=== PATIENT | female | born 1960 | race Caucasian/White ===

== ENCOUNTER 2021-10-29 17:30 | Inpatient (IN) | payer BC, OTHER ==
[~2021-10-29] VITALS: Ht 172.7 cm; Wt 85.8 kg
[2021-10-29 17:44] VITALS: BP 167/80
[2021-10-29] MEDS ORDERED: REMEDY ESSENTIAL ZINC PASTE 113 GM TOP PRN (18:00)
[2021-10-29] MEDS ORDERED: APIX5TAB4 PO (18:03)
[2021-10-29] MEDS ORDERED: CARI350T PO (18:03)
[2021-10-29] MEDS ORDERED: CLOT15CR36 TP (18:04)
[2021-10-29] MEDS ORDERED: LORA-259 PO (18:07)
[2021-10-29] MEDS ORDERED: DILT360C28 PO (18:07)
[2021-10-29] MEDS ORDERED: TRAM50TA PO (18:17)
[2021-10-29] MEDS ORDERED: METF-440 PO (18:17)
[2021-10-29] MEDS ORDERED: TRAZ-182 PO (18:17)
[2021-10-29] MEDS ORDERED: MINE1OIL2 MC (18:17)
[2021-10-29] MEDS ORDERED: TRAM50TA2 PO (18:17)
[2021-10-29] MEDS ORDERED: PETR113P TP (18:17)
[2021-10-29] MEDS ORDERED: PRED20TA PO (18:17)
[2021-10-29] MEDS ORDERED: ALBU1.25 NEB (18:19)
[2021-10-29] MEDS ORDERED: ALBU1.257 NEB (18:19)
[2021-10-29] MEDS ORDERED: IPRA0.2S48 NEB (18:21)
--- NOTE | 2021-10-29 19:01 | NUR ---
Admitted the patient from [facility] via ambulance. Dx Afib, CHF, and Gen. weakness. She is ambulatory with the use of FWW. Continent to bowel and bladder. VS taken, photo taken in chart. Noted with redness to the Bilateral breast folds. Multiple skin discoloration to BUE, no open wounds. Noted with minimal edema and redness to BLE. Skin tag noted to the left buttock. No other concern identified during the assessment. made aware, Dr Alcocer and Dr Durbin for med recon. All needs attended. Will endorse to the next shift for continuity of care.
--- NOTE | 2021-10-29 20:00 | NUR ---
RECEIVED PATIENT AWAKE IN BED. A/O X4. DENIES ANY PAIN OR DISCOMFORT. NO C/O SOB OR RESP. DISTRESS. MID-LINE NOTED TO RIGHT UPPER, INTACT AND PATENT. CALL LIGHT IN REACH. ALL NEEDS ATTENDED. WILL CONTINUE TO MONITOR AND ASSESS.
[2021-10-29 20:37] VITALS: BP 154/77
[2021-10-29] MEDS ORDERED: TRAMADOL HCL 50 MG TABLET PO PRN (20:45)
[2021-10-29] MEDS ORDERED: CARISOPRODOL 350 MG TABLET PO PRN (20:45)
[2021-10-29] MEDS ORDERED: APIXABAN 2.5 MG TABLET PO SCH (21:00)
[2021-10-29] MEDS: APIXABAN 5 MG TABLET PO SCH (21:07)
[2021-10-29] MEDS: TRAZODONE 50 MG TABLET PO PRN (22:01)
[2021-10-30] MEDS: ALBUTEROL SULFATE 1.25 MG/3 ML NEBU NEB SCH ×3 (01:30→13:30)
[2021-10-30] MEDS: IPRATROPIUM BROMIDE 0.5 MG/2.5 ML NEBU NEB SCH ×3 (01:30→13:30)
--- NOTE | 2021-10-30 02:46 | NUR ---
Patient refused treatments nurse aware
[2021-10-30 04:15] VITALS: BP 173/86
--- NOTE | 2021-10-30 06:09 | NUR ---
PATIENT AWAKE IN BED. PATIENT STATED SHE WOKE UP FEELING CONFUSED, BUT FEELS BETTER AT THIS TIME. PATIENT A/O X3 AT THIS TIME. DENIES ANY PAIN OR DISCOMFORT. BP ELEVATED 171/92, RECHECKED AND RECEIVED 173/86. ALL OTHER VS WNL. DENIES ANY CHEST PAIN OR DISCOMFORT. NO RESP. DISTRESS NOTED. MID-LINE NOTED TO RIGHT UPPER ARM, INTACT AND PATENT. CALLED OUT TO DR. MORGAN FOR FURTHER ORDERS AND ENDORSE BP READING. ALL NEEDS ATTENDED. WILL CONTINUE TO MONITOR AND ASSESS.
--- NOTE | 2021-10-30 06:52 | NUR ---
PATIENT AWAKE IN BED. FOUND WANDERING OUTSIDE OF HER ROOM AND FORGOT WHERE SHE WAS. APPEARS CONFUSED. NOTIFIED WORK STATION SUPPORT SPECIALIST. CALLED OUT TO DR. MORGAN VIA EXCHANGE TO INFORM HIM OF PATIENTS BP AND CHANGE IN MENTAL STATUS, WILL ENDORSE TO AM SHIFT.
[2021-10-30 06:59] LABS: HEMATOCRIT 43.4 % (31.2-41.9); MEAN CORPUSCULAR HEMOGLOBIN 36.6 uug (24.7-32.8); MEAN CORPUSCULAR VOLUME 110.5 fL (75.5-95.3); PLATELET COUNT (AUTO) 212 K/uL (179-408)
[2021-10-30 07:19] LABS: BILIRUBIN,TOTAL 1.6 mg/dL (0.2-1.0); MAGNESIUM 2.2 mg/dL (1.8-2.4); PHOSPHOROUS 2.7 mg/dL (2.5-4.9)
[2021-10-30 07:41] LABS: THYROID STIMULATING HORMONE 2.602 mIU/mL (0.358-3.740)
--- NOTE | 2021-10-30 08:30 | NUR ---
CALLED [facility] TO REPORT ELEVATED BP, PER RESIDENTIAL MORTGAGE UNDERWRITER MD WILL CALL BACK. DR PATTERSON ON THE FLOOR AND REPORTED THE ELEVATED VS, ORDER IN CHART, CARRIED OUT. WILL GIVE PATIENT MEDICATION ORDERED. WILL CONTINUE TO MONITOR.
[2021-10-30] MEDS ORDERED: ACETAzolamide 250 MG TABLET PO ONE (08:45)
[2021-10-30] MEDS: METFORMIN HCL 500 MG TABLET PO SCH ×2 (09:03→17:53)
[2021-10-30] MEDS: predniSONE 20 MG TABLET PO SCH (09:03)
[2021-10-30] MEDS: CLOTRIMAZOLE/BETAMET DIPROP CREAM 15 GM TUBE TP SCH ×2 (09:03→20:27)
[2021-10-30] MEDS: APIXABAN 5 MG TABLET PO SCH ×2 (09:04→20:25)
[2021-10-30] MEDS: DILTIAZEM HCL CD 180 MG CAP.SR.24H PO SCH (09:04)
[2021-10-30] MEDS: FUROSEMIDE 20 MG TABLET PO SCH (09:06)
[2021-10-30 10:30] VITALS: BP 159/89
--- NOTE | 2021-10-30 10:30 | NUR ---
BP improved, down 159/89mmHg, no distress identified. will continue to monitor.
[2021-10-30] MEDS: LORAZEPAM 1 MG TABLET PO PRN (11:42)
--- NOTE | 2021-10-30 12:00 | NUR ---
Noted with anxiety, patient started crying. PRN Ativan given as ordered. will continue to monitor.
--- NOTE | 2021-10-30 12:23 | NUR ---
SW consult in order due to patient lives alone and fall history. will continue to monitor.
--- NOTE | 2021-10-30 12:54 | NUR ---
WOUND CARE CONSULT: PT DENIES NEED FOR SKIN ASSESSMENT. PT STATES IS USING LOTRISONE FOR BREASTFOLDS. CURRENT RAJAN SCORE IS 18. WILL SEE PRN.
[2021-10-30 14:41] LABS: *BILIRUBIN,URIN NEGATIVE (NEGATIVE); *BLOOD, URINE 1+ (NEGATIVE); *CLARITY,URINE SLIGHTLY CLOUDY (CLEAR); *COLOR,URINE LIGHT YELLOW (YELLOW); *KETONES,URINE NEGATIVE (NEGATIVE); LEUKOCYTE ESTERASE ,URINE 2+ (NEGATIVE); NITRITE, URINE NEGATIVE (NEGATIVE); PH,URINE 8.5 (5.0-8.0); UGLUCOSE NEGATIVE (NEGATIVE)
[2021-10-30] MEDS ORDERED: DEXTROSE 50% 50 ML DISP.SYRIN IV PRN (15:30)
[2021-10-30] MEDS ORDERED: INSULIN REGULAR, HUMAN 300 UNIT/3 ML VIAL SQ PRN (15:30)
[2021-10-30 16:00] VITALS: BP 160/77
[2021-10-30] MEDS ORDERED: BLOOD SUGAR DIAGNOSTIC 1 EACH STRIP VI SCH (16:30)
[2021-10-30] MEDS: METOPROLOL TARTRATE 25 MG TABLET PO SCH ×2 (16:30→20:25)
[2021-10-30 18:16] VITALS: BP 156/81
--- NOTE | 2021-10-30 18:37 | NUR ---
No other concerns identified during the shift. remained stable. BP still elevated but improved, PRN was not given yet due to parameter should be above SBP 160. noted with increased confusion, MD made aware per charge nurse and ordered UA, awaiting result. PICC line single lumem, intact and patent, dressing changed. safety measures maintained. kept call light within reach. all due meds given. all needs attended. will endorse to the next shift for continuity of care.
[2021-10-30] MEDS ORDERED: ALBUTEROL SULFATE 2.5 MG/3 ML NEBU NEB PRN (19:15)
[2021-10-30] MEDS ORDERED: IPRATROPIUM BROMIDE 0.5 MG/2.5 ML NEBU NEB PRN (19:15)
--- NOTE | 2021-10-30 19:30 | NUR ---
Received patient lying in bed. AAOx4 with periods of confusion. Able to make needs known. Stated pain is tolerable and decreasing at this time. Denies any SOB. On O2 at 2LPm via NC in place. HIRA PICC line intact and patent. Needs assessed and attended to. Safety measure initiated and call light within reached.
[2021-10-30] MEDS: BUDESONIDE 0.5 MG/2 ML NEBU NEB SCH (19:31)
[2021-10-30 20:00] VITALS: BP 148/93
[2021-10-30 20:03] LABS: BACTERIA,URINE MANY /HPF (NONE SEEN); CALCIUM CARBONATE CRYSTALS,UR NONE SEEN /HPF (NONE SEEN); CALCIUM OXALATE CRYSTALS,UR NONE SEEN /HPF (NONE SEEN); CALCIUM PHOSPHATE CRYSTALS,UR NONE SEEN /HPF (NONE SEEN); COARSE GRANULAR CASTS,URINE NONE SEEN /LPF; CYSTINE CRYSTALS,URINE NONE SEEN /HPF (NONE SEEN); FATTY CASTS,URINE NONE SEEN /LPF (NONE SEEN); MUCUS,URINE NONE SEEN /LPF (0-FEW); RED BLOOD CELL CASTS,URINE NONE SEEN /LPF (NONE SEEN); SPERM,URINE NONE SEEN /HPF (NONE SEEN); SQUAMOUS EPITHELIAL CELL,UR MODERATE /HPF (NONE SEEN); TRICHOMONAS,URINE NONE SEEN /HPF (NONE SEEN); TRIPLE PHOSPHATE CRYSTAL,UR NONE SEEN /HPF (NONE SEEN); TYROSINE CRYSTAL,URINE NONE SEEN /HPF (NONE SEEN); URIC ACID CRYSTALS,URINE NONE SEEN /HPF (NONE SEEN); URINE AMORPHOUS PHOSPHATES NONE SEEN /HPF; URINE AMORPHOUS URATE NONE SEEN /HPF; WAXY CASTS,URINE NONE SEEN /LPF (NONE SEEN); YEAST,URINE NONE SEEN /HPF (NONE SEEN)
[2021-10-30] MEDS: NITROFURANTOIN/NITROFURAN MAC 100 MG CAPSULE PO SCH (20:23)
[2021-10-31 04:00] VITALS: BP 148/85
--- NOTE | 2021-10-31 05:29 | NUR ---
Patient remains AAOx3-4 with periods of confusion.No complain of pain or SOB on RA. Right UA PICC line remains intact and patent. Needs assessed and attended to. Frequently sitting at the edge of bed. Safety measure maintained and call light within reached.
[2021-10-31] MEDS: BUDESONIDE 0.5 MG/2 ML NEBU NEB SCH ×2 (07:24→19:30)
[2021-10-31 08:00] VITALS: BP 164/96
[2021-10-31 08:03] LABS: ABG BASE EXCESS 6.1 mmol/L; ABG HCO3 30.8 mmol/L; ABG PH 7.463 (7.350-7.450); ABG PO2 58.1 mmHg (75.0-100.0); ABG SITE RIGHT RADIAL; ABG TOTAL HEMOGLOBIN 16.6 G/dL (12.0-16.0); COHb 1.3 % (0.5-1.5); MetHb 0.3 % (0.0-1.5); O2Hb 88.9 % (94.0-97.0); VENT MODE room air
[2021-10-31] MEDS: METFORMIN HCL 500 MG TABLET PO SCH ×2 (09:00→17:35)
[2021-10-31] MEDS: DILTIAZEM HCL CD 180 MG CAP.SR.24H PO SCH (09:00)
[2021-10-31] MEDS: predniSONE 20 MG TABLET PO SCH (09:00)
[2021-10-31] MEDS: FUROSEMIDE 20 MG TABLET PO SCH (09:00)
[2021-10-31] MEDS: NITROFURANTOIN/NITROFURAN MAC 100 MG CAPSULE PO SCH ×2 (09:00→20:01)
[2021-10-31] MEDS ORDERED: LOSARTAN POTASSIUM 50 MG TABLET PO SCH (09:00)
[2021-10-31] MEDS: APIXABAN 5 MG TABLET PO SCH ×2 (09:01→20:02)
[2021-10-31] MEDS: CLOTRIMAZOLE/BETAMET DIPROP CREAM 15 GM TUBE TP SCH ×2 (09:01→20:03)
--- NOTE | 2021-10-31 10:57 | NUR ---
INTERDISCIPLINARY TEAM CONFERENCE
--- NOTE | 2021-10-31 13:07 | NUR ---
Pt is awake, alert and oriented x 3, able to communicate needs. Pt is able to transfer from bed to chair and vise versa with two person assist. Speech is clear however it was reported by physical therapy and wound care nurse that it is different than her baseline. MD was notified and CT of head without contrast ordered and taken pending results. Comfort measures provided, call light within reach. Will continue to monitor.
[2021-10-31 16:23] VITALS: BP 145/95
[2021-10-31 20:00] VITALS: BP 159/87
--- NOTE | 2021-10-31 20:40 | NUR ---
Received patient sitting at the edge of bed. AAOx4 at this time. Denies any pain or SOB. Right UA PICC line intact and patent. Assisted to BSC and patient had 1 BM small amount then assisted back to bed. Other needs assessed and attended to. Safety measure initiated and call light within reached.
[2021-11-01 04:04] VITALS: BP 159/99
[2021-11-01] MEDS: TRAMADOL HCL 50 MG TABLET PO PRN ×2 (04:08→13:34)
--- NOTE | 2021-11-01 05:39 | NUR ---
Patient remains AAOx3-4 with periods of confusion. No complain of SOB. Ultram given for complain of back pain. Right UA PICC line remains intact and patent. Needs attended to and met. Safety measure maintained and call light within reached.
[2021-11-01 06:24] LABS: HEMATOCRIT 47.1 % (31.2-41.9); MEAN CORPUSCULAR HEMOGLOBIN 36.5 uug (24.7-32.8); MEAN CORPUSCULAR VOLUME 109.6 fL (75.5-95.3); PLATELET COUNT (AUTO) 201 K/uL (179-408)
[2021-11-01 06:45] LABS: BILIRUBIN,TOTAL 2.3 mg/dL (0.2-1.0); CREATININE 0.8 mg/dL (0.6-1.3); MAGNESIUM 1.7 mg/dL (1.8-2.4); PHOSPHOROUS 3.5 mg/dL (2.5-4.9); TOTAL PROTEIN, SERUM 6.3 g/dL (6.4-8.2)
[2021-11-01 06:47] LABS: POTASSIUM 2.8 mmol/L (3.5-5.1)
--- NOTE | 2021-11-01 06:48 | NUR ---
Obtain lab result for K level 2.8 from [facility] Informed Dr. Akers and awaiting for any new order. Will inform day shift nurse who will assume care.
[2021-11-01] MEDS: BUDESONIDE 0.5 MG/2 ML NEBU NEB SCH ×2 (07:26→19:30)
[2021-11-01 07:55] VITALS: BP 154/84
[2021-11-01] MEDS: METFORMIN HCL 500 MG TABLET PO SCH ×2 (07:57→17:05)
[2021-11-01] MEDS: IBUPROFEN 400 MG TABLET PO PRN (07:57)
[2021-11-01] MEDS: DILTIAZEM HCL CD 180 MG CAP.SR.24H PO SCH (08:01)
[2021-11-01] MEDS: LORAZEPAM 1 MG TABLET PO PRN (08:01)
[2021-11-01] MEDS: hydrALAZINE HCL 50 MG TABLET PO PRN ×2 (08:02→11:27)
[2021-11-01] MEDS: FUROSEMIDE 20 MG TABLET PO SCH (08:02)
[2021-11-01] MEDS: NITROFURANTOIN/NITROFURAN MAC 100 MG CAPSULE PO SCH ×2 (08:02→22:05)
[2021-11-01] MEDS: APIXABAN 5 MG TABLET PO SCH ×2 (08:08→22:07)
[2021-11-01] MEDS ORDERED: POTASSIUM CHLORIDE 20 MEQ POWDER PACKET PO ONE (08:16)
--- NOTE | 2021-11-01 09:12 | NUR ---
INDIVIDUALIZED PLAN OF CARE
[2021-11-01] MEDS: MAGNESIUM SULFATE/D5W 100 ML IV SCH ×2 (09:27→10:31)
[2021-11-01] MEDS: POTASSIUM CHLORIDE 50 ML IV SCH ×4 (09:28→16:16)
[2021-11-01] MEDS: predniSONE 10 MG TABLET PO SCH (09:28)
[2021-11-01] MEDS: LOSARTAN POTASSIUM 50 MG TABLET PO SCH ×2 (09:28→16:17)
[2021-11-01] MEDS: CLOTRIMAZOLE/BETAMET DIPROP CREAM 15 GM TUBE TP SCH ×2 (09:29→22:13)
[2021-11-01] MEDS: POTASSIUM CHLORIDE 20 MEQ POWDER PACKET PO SCH (11:20)
[2021-11-01 15:25] VITALS: BP 135/72
[2021-11-01] MEDS: GLUCERNA SHAKE VANILLA 237 ML CAN PO SCH (16:18)
--- NOTE | 2021-11-01 18:39 | NUR ---
no events noted during shift, MRI done today
--- NOTE | 2021-11-01 19:00 | NUR ---
Received patient on bed, watching TV, alert, oriented x4, no shortness of breath noted, no complain of pain.
[2021-11-01 20:00] VITALS: BP 117/75
[2021-11-02 04:00] VITALS: BP 110/71
--- NOTE | 2021-11-02 05:53 | NUR ---
Patient slept well, no complaint of pain. Able to get out of bed with minimal assist going to the bathroom. No shortness sof breath, No episode of confusion and no change in behavior within the shift. Patient in fair condition.
[2021-11-02 06:25] LABS: HEMATOCRIT 45.7 % (31.2-41.9); MEAN CORPUSCULAR HEMOGLOBIN 36.2 uug (24.7-32.8); PLATELET COUNT (AUTO) 178 K/uL (179-408)
[2021-11-02 07:07] LABS: BILIRUBIN,TOTAL 2.4 mg/dL (0.2-1.0); CREATININE 0.7 mg/dL (0.6-1.3); PHOSPHOROUS 3.1 mg/dL (2.5-4.9)
[2021-11-02] MEDS: BUDESONIDE 0.5 MG/2 ML NEBU NEB SCH ×2 (07:30→23:11)
[2021-11-02] MEDS: METFORMIN HCL 500 MG TABLET PO SCH ×2 (08:03→17:04)
[2021-11-02 08:10] VITALS: BP 152/73
[2021-11-02] MEDS: DILTIAZEM HCL CD 180 MG CAP.SR.24H PO SCH (08:19)
[2021-11-02] MEDS: FUROSEMIDE 20 MG TABLET PO SCH (08:19)
[2021-11-02] MEDS: NITROFURANTOIN/NITROFURAN MAC 100 MG CAPSULE PO SCH ×2 (08:19→20:14)
[2021-11-02] MEDS: predniSONE 10 MG TABLET PO SCH (08:19)
[2021-11-02] MEDS: LOSARTAN POTASSIUM 50 MG TABLET PO SCH ×2 (08:19→16:53)
[2021-11-02] MEDS: GLUCERNA SHAKE VANILLA 237 ML CAN PO SCH ×2 (08:20→16:53)
[2021-11-02] MEDS: POTASSIUM CHLORIDE 20 MEQ POWDER PACKET PO SCH (08:20)
[2021-11-02] MEDS: CLOTRIMAZOLE/BETAMET DIPROP CREAM 15 GM TUBE TP SCH ×2 (08:21→20:13)
[2021-11-02] MEDS: TRAMADOL HCL 50 MG TABLET PO PRN ×2 (08:25→20:25)
[2021-11-02] MEDS: APIXABAN 5 MG TABLET PO SCH ×2 (08:27→20:24)
[2021-11-02 16:11] VITALS: BP 142/69
[2021-11-02] MEDS: LORAZEPAM 1 MG TABLET PO PRN (17:57)
--- NOTE | 2021-11-02 19:00 | NUR ---
Received patient on bed, alert, no complaint of pain, reported to have poor intake at day time. Encourage patient to eat well for nourishment and regain her strength.
--- NOTE | 2021-11-02 19:22 | NUR ---
PATIENT NOTED WITH POOR APPETITE, OFFERED DIFFERENT KIND OF FOODS, PATIENT STATED SHE IS NOT HUNGRY, NO ACUTE DISTRESS NOTED AT THIS TIME, CONTINUE TO MONITOR
[2021-11-02 20:00] VITALS: BP 153/82
--- NOTE | 2021-11-03 00:25 | NUR ---
Encouraged patient to drink water, able to drink about 200cc
[2021-11-03 04:00] VITALS: BP 130/74
--- NOTE | 2021-11-03 06:03 | NUR ---
Patient slept well, no compliant of pain. Assisted to bedside commode, needs minimal assist. Back to bed in stable condition. Patient in fair condition.
[2021-11-03] MEDS: BUDESONIDE 0.5 MG/2 ML NEBU NEB SCH (07:23)
[2021-11-03 07:39] VITALS: BP 156/73
[2021-11-03] MEDS: METFORMIN HCL 500 MG TABLET PO SCH ×2 (08:53→17:19)
[2021-11-03] MEDS: NITROFURANTOIN/NITROFURAN MAC 100 MG CAPSULE PO SCH ×2 (08:53→20:50)
[2021-11-03] MEDS: DILTIAZEM HCL CD 180 MG CAP.SR.24H PO SCH (08:54)
[2021-11-03] MEDS: APIXABAN 5 MG TABLET PO SCH ×2 (08:55→20:52)
[2021-11-03] MEDS: CLOTRIMAZOLE/BETAMET DIPROP CREAM 15 GM TUBE TP SCH ×2 (08:56→20:53)
[2021-11-03] MEDS: predniSONE 10 MG TABLET PO SCH (08:56)
[2021-11-03] MEDS: GLUCERNA SHAKE VANILLA 237 ML CAN PO SCH ×2 (08:59→17:24)
[2021-11-03] MEDS: TRAMADOL HCL 50 MG TABLET PO PRN (10:09)
[2021-11-03] MEDS: LOSARTAN POTASSIUM 50 MG TABLET PO SCH ×2 (10:30→17:19)
--- NOTE | 2021-11-03 11:50 | NUR ---
Received patient resting on bed, AAOx4, medicated with Tramadol for C/O of back pain ,respiration even and unlabored at room air continent of B&B used bed side commode.Up with PT/OT for therapeutic exercises tolerated well
[2021-11-03] MEDS: LORAZEPAM 1 MG TABLET PO PRN (14:52)
[2021-11-03 15:13] VITALS: BP 124/62
[2021-11-03 20:49] VITALS: BP 156/76
[2021-11-03] MEDS: TRAZODONE 50 MG TABLET PO PRN (21:45)
[2021-11-04] MEDS: BUDESONIDE 0.5 MG/2 ML NEBU NEB SCH ×3 (00:35→22:24)
[2021-11-04 04:13] VITALS: BP 149/79
--- NOTE | 2021-11-04 04:24 | NUR ---
Watching TV @ beginning of shift. AAOx4 OOB to bedside commode with assist. Voiding freely. All needs attended and met. BM noted this shift. Stool for C diff sent to lab. All po meds given without difficulty. No complaints presented during shift. VSS. Will monitor patient.
[2021-11-04 08:00] VITALS: BP 155/84
[2021-11-04] MEDS: NITROFURANTOIN/NITROFURAN MAC 100 MG CAPSULE PO SCH (08:14)
[2021-11-04] MEDS: DILTIAZEM HCL CD 180 MG CAP.SR.24H PO SCH (08:14)
[2021-11-04] MEDS: METFORMIN HCL 500 MG TABLET PO SCH ×2 (08:14→17:54)
[2021-11-04] MEDS: LORAZEPAM 1 MG TABLET PO PRN ×2 (08:15→17:54)
[2021-11-04] MEDS: LOSARTAN POTASSIUM 50 MG TABLET PO SCH ×2 (08:16→17:54)
[2021-11-04] MEDS: APIXABAN 5 MG TABLET PO SCH ×2 (08:16→20:55)
[2021-11-04] MEDS: GLUCERNA SHAKE VANILLA 237 ML CAN PO SCH ×2 (08:17→17:55)
[2021-11-04] MEDS: predniSONE 10 MG TABLET PO SCH (08:24)
[2021-11-04] MEDS: CLOTRIMAZOLE/BETAMET DIPROP CREAM 15 GM TUBE TP SCH ×2 (08:24→20:44)
[2021-11-04] MEDS: TRAMADOL HCL 50 MG TABLET PO PRN (14:53)
[2021-11-04 16:34] VITALS: BP 164/63
--- NOTE | 2021-11-04 19:15 | NUR ---
Received patient on bed, alert and oriented x4, no complaint of pain at this time, no shortness of breath. SAfety precautions provided, call harrell placed within reach.
[2021-11-04 20:08] VITALS: BP 173/80
[2021-11-04] MEDS: TRAZODONE 50 MG TABLET PO PRN (20:45)
--- NOTE | 2021-11-04 20:45 | NUR ---
Requested for sleeping pill (Trazodone 50mg PO) given, able to slept after 1 hour.
[2021-11-04 21:07] VITALS: BP 159/78
[2021-11-05 04:00] VITALS: BP 130/73
--- NOTE | 2021-11-05 05:19 | NUR ---
patient had bowel movement, perineal care done, zguard applied on both buttocks, skin intact. No [id number] of pain. Still with redness at breast skin folds on medication. Patient in fair condition.
[2021-11-05 07:02] LABS: BILIRUBIN,DIRECT 0.5 mg/dL (0.0-0.2); BILIRUBIN,TOTAL 1.5 mg/dL (0.2-1.0); TOTAL PROTEIN, SERUM 5.9 g/dL (6.4-8.2)
[2021-11-05 07:30] VITALS: BP 129/81
[2021-11-05] MEDS: GLUCERNA SHAKE VANILLA 237 ML CAN PO SCH ×2 (08:00→16:47)
[2021-11-05] MEDS: BUDESONIDE 0.5 MG/2 ML NEBU NEB SCH ×2 (08:05→19:45)
[2021-11-05] MEDS: DILTIAZEM HCL CD 180 MG CAP.SR.24H PO SCH (08:25)
[2021-11-05] MEDS: LOSARTAN POTASSIUM 50 MG TABLET PO SCH ×2 (08:26→16:46)
[2021-11-05] MEDS: predniSONE 5 MG TABLET PO SCH (08:26)
[2021-11-05] MEDS: APIXABAN 5 MG TABLET PO SCH ×2 (08:27→20:55)
[2021-11-05] MEDS: METFORMIN HCL 500 MG TABLET PO SCH ×2 (08:42→18:04)
[2021-11-05] MEDS: CLOTRIMAZOLE/BETAMET DIPROP CREAM 15 GM TUBE TP SCH ×2 (08:43→20:56)
[2021-11-05] MEDS ORDERED: predniSONE 10 MG TABLET PO SCH (09:00)
--- NOTE | 2021-11-05 10:00 | NUR ---
NSG: Received patient resting on bed, AAOx4, AMBULATE WITH pT, respiration even and unlabored at room air continent of B&B used bed side commode.Up with PT/OT for therapeutic exercises tolerated well. continue plan of care.
[2021-11-05] MEDS: hydrALAZINE HCL 50 MG TABLET PO PRN (10:52)
--- NOTE | 2021-11-05 11:15 | NUR ---
blood pressure 168/78 hr 90. hydralazine 50 mg po prn given.
[2021-11-05] MEDS: TRAMADOL HCL 50 MG TABLET PO PRN ×2 (11:22→20:10)
[2021-11-05 16:00] VITALS: BP 121/70
[2021-11-05] MEDS ORDERED: ONDANSETRON HCL 4 MG TABLET PO PRN (16:30)
--- NOTE | 2021-11-05 16:51 | NUR ---
patient c/o nausea. zofran 4 mg po given for nausea.
--- NOTE | 2021-11-05 19:15 | NUR ---
Received patient on bed, awake, no complaint of pain, no shortness of breath, alert and oriented x4. Requested to take sleeping pill at bedtime.
[2021-11-05 20:00] VITALS: BP 123/72
[2021-11-05] MEDS: TRAZODONE 50 MG TABLET PO PRN (20:10)
--- NOTE | 2021-11-06 | NUR ---
Patient sleeping when checked, no signs of pain or shortness of breath noted.
[2021-11-06] MEDS: TRAMADOL HCL 50 MG TABLET PO PRN ×2 (03:41→13:58)
[2021-11-06 04:00] VITALS: BP 125/70
--- NOTE | 2021-11-06 04:00 | NUR ---
Complaint of pain around 0340, Tramadol PO given PRN, able to slept well after an hour. Patient in fair condition.
[2021-11-06] MEDS: BUDESONIDE 0.5 MG/2 ML NEBU NEB SCH ×3 (07:44→19:40)
[2021-11-06 08:00] VITALS: BP 145/65
[2021-11-06] MEDS: GLUCERNA SHAKE VANILLA 237 ML CAN PO SCH ×2 (08:10→17:17)
[2021-11-06] MEDS: predniSONE 5 MG TABLET PO SCH (08:57)
[2021-11-06] MEDS: DILTIAZEM HCL CD 180 MG CAP.SR.24H PO SCH (08:57)
[2021-11-06] MEDS: METFORMIN HCL 500 MG TABLET PO SCH ×2 (08:57→17:18)
[2021-11-06] MEDS: LOSARTAN POTASSIUM 50 MG TABLET PO SCH ×2 (08:57→17:18)
[2021-11-06] MEDS: CLOTRIMAZOLE/BETAMET DIPROP CREAM 15 GM TUBE TP SCH ×2 (08:58→20:45)
[2021-11-06] MEDS: APIXABAN 5 MG TABLET PO SCH ×2 (08:58→20:44)
[2021-11-06] MEDS: IBUPROFEN 400 MG TABLET PO PRN (10:03)
--- NOTE | 2021-11-06 11:46 | NUR ---
Pt is a/o x 4, complained of pain in lower back, ibuprofen administered. Pt is active and independent in personal hygiene. She is more active and mobile, with 1 persona assist. She is able to communicate needs and pain if needed. Comfort measures provided, call light within reach. Pt currently intermittently sleeping. Will continue to monitor.
[2021-11-06 16:00] VITALS: BP 134/64
[2021-11-06 20:00] VITALS: BP 150/73
[2021-11-06] MEDS: TRAZODONE 50 MG TABLET PO PRN (21:49)
[2021-11-07 04:00] VITALS: BP 163/66
[2021-11-07] MEDS: hydrALAZINE HCL 50 MG TABLET PO PRN (06:22)
--- NOTE | 2021-11-07 06:24 | NUR ---
BP 162/66, Apresoline 50 mg given as ordered and needed. Will endorse to oncoming nurse accordingly.
[2021-11-07] MEDS: BUDESONIDE 0.5 MG/2 ML NEBU NEB SCH ×2 (07:33→21:21)
[2021-11-07 07:44] VITALS: BP 150/76
[2021-11-07] MEDS: GLUCERNA SHAKE VANILLA 237 ML CAN PO SCH ×2 (08:00→16:30)
[2021-11-07] MEDS: APIXABAN 5 MG TABLET PO SCH ×2 (08:36→20:42)
[2021-11-07] MEDS: DILTIAZEM HCL CD 180 MG CAP.SR.24H PO SCH (08:37)
[2021-11-07] MEDS: METFORMIN HCL 500 MG TABLET PO SCH ×2 (08:37→18:23)
[2021-11-07] MEDS: LOSARTAN POTASSIUM 50 MG TABLET PO SCH ×2 (08:38→16:30)
[2021-11-07] MEDS: predniSONE 5 MG TABLET PO SCH (08:38)
[2021-11-07] MEDS: CLOTRIMAZOLE/BETAMET DIPROP CREAM 15 GM TUBE TP SCH ×2 (08:39→20:43)
[2021-11-07] MEDS ORDERED: AMLODIPINE 5 MG TABLET PO SCH (09:00)
[2021-11-07] MEDS: AMLODIPINE 2.5 MG TABLET PO SCH ×2 (09:35→20:43)
--- NOTE | 2021-11-07 10:04 | NUR ---
INTERDISCIPLINARY TEAM CONFERENCE
[2021-11-07] MEDS: TRAMADOL HCL 50 MG TABLET PO PRN (13:42)
--- NOTE | 2021-11-07 14:00 | NUR ---
patient is alert, oriented x4, no sob, resp even nonlabored, skin warm and dry to touch, transfers herself from wheelchair to bedside commode with supervision only, still on steroids, no adverse reactions noted, education provided on use of steroids, patient verbalized understanding of it, patient stated her appetite is better than before, drinking enough water, no nausea, no vomiting, no no diarrhea noted.
[2021-11-07 15:24] VITALS: BP 136/63
--- NOTE | 2021-11-07 18:49 | NUR ---
PATIENT COMPLAINED BURNING SENSATIONS UPON URINATION, AND MALODOROUS WILL COLLECT URINE ORDERED
[2021-11-07 20:00] VITALS: BP 143/83
[2021-11-07] MEDS: TRAZODONE 50 MG TABLET PO PRN (22:13)
[2021-11-08] MEDS: BUDESONIDE 0.5 MG/2 ML NEBU NEB SCH ×2 (07:30→20:45)
[2021-11-08 08:23] VITALS: BP 112/55
[2021-11-08] MEDS: METFORMIN HCL 500 MG TABLET PO SCH ×2 (08:52→17:33)
[2021-11-08] MEDS: GLUCERNA SHAKE VANILLA 237 ML CAN PO SCH ×2 (08:53→17:36)
[2021-11-08 09:18] LABS: HEMATOCRIT 40.6 % (31.2-41.9); MEAN CORPUSCULAR HEMOGLOBIN 35.6 uug (24.7-32.8); MEAN CORPUSCULAR VOLUME 111.2 fL (75.5-95.3); PLATELET COUNT (AUTO) 237 K/uL (179-408)
[2021-11-08] MEDS: DILTIAZEM HCL CD 180 MG CAP.SR.24H PO SCH (09:18)
[2021-11-08] MEDS: LOSARTAN POTASSIUM 50 MG TABLET PO SCH ×2 (09:19→17:33)
[2021-11-08] MEDS: APIXABAN 5 MG TABLET PO SCH ×2 (09:20→20:17)
[2021-11-08] MEDS: CLOTRIMAZOLE/BETAMET DIPROP CREAM 15 GM TUBE TP SCH ×2 (09:21→20:22)
[2021-11-08 09:28] LABS: CREATININE 1.1 mg/dL (0.6-1.3); POTASSIUM 4.4 mmol/L (3.5-5.1)
--- NOTE | 2021-11-08 09:45 | NUR ---
Received patient awake, alert, oriented x4, no sob, resp even nonlabored, skin warm and dry to touch, transfers herself from wheelchair to bedside commode with supervision only, C/O of feeling slightly dizzy , patient seen by DR Turner orthostatic BP was taken Lying 112/55, sitting 114/63 and standing 108/72 DR was notified . Received a called from the lab with a critical lab result of WBC of 38.[address] White with order to get a repeat of the CBC, and Blood cultures,CXR ,UA, Phos, mag CMP .patient stated her appetite is better today , encourage to drink enough water, no nausea, no vomiting, no no diarrhea noted. will continue to monitor closely
[2021-11-08] MEDS ORDERED: PIPERACILLIN SODIUM/TAZOBACTAM 4.5 G in IV DEXTROSE 5% 50 ML IV SCH (10:00)
[2021-11-08 10:38] LABS: *BILIRUBIN,URIN 2+ (NEGATIVE); *BLOOD, URINE 3+ (NEGATIVE); *COLOR,URINE YELLOW (YELLOW); *KETONES,URINE TRACE (NEGATIVE); LEUKOCYTE ESTERASE ,URINE 3+ (NEGATIVE); NITRITE, URINE NEGATIVE (NEGATIVE); UGLUCOSE NEGATIVE (NEGATIVE)
[2021-11-08 10:41] LABS: *CLARITY,URINE CLOUDY (CLEAR)
[2021-11-08 11:18] LABS: HEMATOCRIT 41.5 % (31.2-41.9); MEAN CORPUSCULAR VOLUME 111.1 fL (75.5-95.3); PLATELET COUNT (AUTO) 210 K/uL (179-408)
--- NOTE | 2021-11-08 11:30 | NUR ---
Receive a called from the lab with results of the CBC repeat with critical value of 38.9 Dr White was notified with new order for ATB therapy IV Cefepime and vanco order for calcitonin, and Lactic acid level and to notified DR Siddiqui send a massage to DR Siddiqui he will visit the patient this afternoon
[2021-11-08] MEDS: TRAMADOL HCL 50 MG TABLET PO PRN ×2 (11:38→20:18)
[2021-11-08] MEDS ORDERED: DOSING BY PHARMACY-MD TO SPECIFY MED/ROUTE XX PRN (12:00)
[2021-11-08 12:12] LABS: BACTERIA,URINE MANY /HPF (NONE SEEN); RBC,URINE 20-50 /HPF (0-3); WBC,URINE 80-100 /HPF (0-3)
[2021-11-08 12:13] LABS: SQUAMOUS EPITHELIAL CELL,UR MODERATE /HPF (NONE SEEN)
[2021-11-08 12:22] LABS: BAND % (MANUAL) 3 % (0-10); LYMPHOCYTES % (MANUAL) 1 % (20-40); MONOCYTES % (MANUAL) 2 % (2-10); NEUTROPHILS % (MANUAL) 94 % (42-75)
[2021-11-08] MEDS: CEFEPIME HCL 2 G in IV DEXTROSE 5% 100 ML IV SCH (12:26)
[2021-11-08 12:29] LABS: BAND % (MANUAL) 4 % (0-10); LYMPHOCYTES % (MANUAL) 2 % (20-40); MONOCYTES % (MANUAL) 4 % (2-10); NEUTROPHILS % (MANUAL) 90 % (42-75)
[2021-11-08] MEDS ORDERED: DOSING BY PHARMACY-MD TO SPECIFY MED/ROUTE IV SCH (12:30)
--- NOTE | 2021-11-08 13:15 | NUR ---
Received a called from the lab with Lactic acid results of 2.1 DR Allen notified with new order for IV hydration with NS at 70 ml an hour. ATB IV still ruining at this time
[2021-11-08] MEDS: VANCOMYCIN IV 1,000 MG in IV DEXTROSE 5% 250 ML IV SCH (14:10)
--- NOTE | 2021-11-08 14:12 | NUR ---
Pt C/O of feeling cold Temp check is 99.2 at this time MD made aware with new order for Tylenol 650 Q6 PRN Order noted and carried out.
[2021-11-08] MEDS: ACETAMINOPHEN 325 MG TABLET PO PRN ×2 (14:22→20:20)
--- NOTE | 2021-11-08 15:20 | NUR ---
Received a called from lab with Lactic acid Reflux result of 2.4 MD made aware with new order for NS 1L bolus and continue with IV Hydration NS at 70 ml/hr repeat Lactic acid level at 9 PM order noted and carried out
[2021-11-08 15:21] LABS: BILIRUBIN,DIRECT 0.9 mg/dL (0.0-0.2); BILIRUBIN,TOTAL 1.6 mg/dL (0.2-1.0)
[2021-11-08 16:00] VITALS: BP 118/44
[2021-11-08] MEDS ORDERED: IV NS 1000 ML 1,000 ML IV ONE (16:00)
[2021-11-08] MEDS: IV NS 1000 ML 1,000 ML IV PRN (16:06)
[2021-11-08 16:13] LABS: IRON, SERUM 12 ug/dL (50-175)
[2021-11-08 16:39] LABS: FERRITIN 405 ng/mL (8-252)
[2021-11-08] MEDS: LORAZEPAM 1 MG TABLET PO PRN (17:53)
[2021-11-08 20:03] VITALS: BP 109/55
--- NOTE | 2021-11-08 21:42 | NUR ---
Received Lactic Acid results of 2.1 from the Lab c/o [facility].
[2021-11-09] MEDS: CEFEPIME HCL 2 G in IV DEXTROSE 5% 100 ML IV SCH ×2 (00:20→13:21)
[2021-11-09] MEDS: TRAZODONE 50 MG TABLET PO PRN ×2 (00:36→22:01)
[2021-11-09] MEDS: VANCOMYCIN IV 1,000 MG in IV DEXTROSE 5% 250 ML IV SCH (01:37)
[2021-11-09 04:03] VITALS: BP 105/75
[2021-11-09] MEDS: TRAMADOL HCL 50 MG TABLET PO PRN (05:24)
[2021-11-09 07:36] LABS: HEMATOCRIT 42.5 % (31.2-41.9); MEAN CORPUSCULAR HEMOGLOBIN 36.7 uug (24.7-32.8); MEAN CORPUSCULAR VOLUME 110.9 fL (75.5-95.3); PLATELET COUNT (AUTO) 188 K/uL (179-408)
[2021-11-09 07:41] LABS: CREATININE 0.9 mg/dL (0.6-1.3); MAGNESIUM 1.3 mg/dL (1.8-2.4); PHOSPHOROUS 3.9 mg/dL (2.5-4.9); POTASSIUM 3.6 mmol/L (3.5-5.1)
[2021-11-09 07:59] VITALS: BP 141/83
[2021-11-09] MEDS: BUDESONIDE 0.5 MG/2 ML NEBU NEB SCH ×2 (08:11→19:50)
[2021-11-09] MEDS: DILTIAZEM HCL CD 180 MG CAP.SR.24H PO SCH (08:26)
[2021-11-09] MEDS: METFORMIN HCL 500 MG TABLET PO SCH ×2 (08:26→17:34)
[2021-11-09] MEDS: LOSARTAN POTASSIUM 50 MG TABLET PO SCH ×2 (08:27→17:34)
[2021-11-09] MEDS: APIXABAN 5 MG TABLET PO SCH ×2 (08:28→20:02)
[2021-11-09] MEDS: CLOTRIMAZOLE/BETAMET DIPROP CREAM 15 GM TUBE TP SCH ×2 (08:28→20:03)
[2021-11-09] MEDS: GLUCERNA SHAKE VANILLA 237 ML CAN PO SCH ×2 (08:29→17:35)
[2021-11-09] MEDS: CARISOPRODOL 350 MG TABLET PO PRN ×2 (08:30→19:59)
[2021-11-09] MEDS: IV NS 1000 ML 1,000 ML IV PRN (08:35)
[2021-11-09] MEDS ORDERED: POTASSIUM CHLORIDE 20 MEQ POWDER PACKET GT ONE (08:45)
[2021-11-09] MEDS ORDERED: POTASSIUM CHLORIDE 20 MEQ TAB.PRT.SR PO ONE (09:00)
[2021-11-09] MEDS: MAGNESIUM SULFATE/D5W 100 ML IV SCH ×4 (09:19→12:28)
[2021-11-09] MEDS: ACETAMINOPHEN 325 MG TABLET PO PRN (09:35)
[2021-11-09] MEDS: VANCOMYCIN IV 1,250 MG in IV DEXTROSE 5% 250 ML IV SCH (14:15)
[2021-11-09 16:05] VITALS: BP 117/70
--- NOTE | 2021-11-09 16:30 | NUR ---
Received patient awake, alert, oriented x 4, no sob, respirations even nonlabored, skin warm and dry to touch, used bedside commode with supervision only, C/O patient seen by DR White this morning , lab result of WBC of 18.8 K + = 3.6 Mg =1.3 Potassium and magnesium was replace as ordered this morning. DR White made aware.Remain on ATB Cefepime 2 GMs and Vanco 1000mg .Vanco trough level 12.3. IV fluids NS running at 70 ml /hr , patient stated her appetite is better and she feels good today , encourage to drink enough water, no nausea, no vomiting, no diarrhea noted. will continue to monitor closely
[2021-11-09 18:43] LABS: *OCCULT BLOOD STOOL NEGATIVE (NEGATIVE)
--- NOTE | 2021-11-09 19:15 | NUR ---
Received patient on bed, awake, oriented x4, no shortness of breath noted, no complaint of pain, Requested to take Ativan and Soma around 8pm. With ongoing IVF NS 0.9 1L at 70cc/hr.
[2021-11-09 19:57] VITALS: BP 101/68
[2021-11-09] MEDS: LORAZEPAM 1 MG TABLET PO PRN (19:59)
[2021-11-10] MEDS: CEFEPIME HCL 2 G in IV DEXTROSE 5% 100 ML IV SCH ×2 (00:06→12:29)
[2021-11-10] MEDS: ACETAMINOPHEN 325 MG TABLET PO PRN (00:38)
--- NOTE | 2021-11-10 00:38 | NUR ---
Patient requested for Trazodone 50mg PO, given, able to slept after for almost 2 hrs. Complaint of pain at her neck area, Tylenol 650mg given. Able to slept for 2 hrs.
[2021-11-10] MEDS: VANCOMYCIN IV 1,250 MG in IV DEXTROSE 5% 250 ML IV SCH (01:49)
[2021-11-10] MEDS: TRAMADOL HCL 50 MG TABLET PO PRN ×2 (02:02→13:48)
--- NOTE | 2021-11-10 02:02 | NUR ---
Patient awake, complaining of pain at her neck area, Tramadol 50mg Po given, able to slept well. Patient in fair condition.
[2021-11-10 04:23] VITALS: BP 122/74
[2021-11-10 07:11] LABS: HEMATOCRIT 40.3 % (31.2-41.9); MEAN CORPUSCULAR HEMOGLOBIN 36.9 uug (24.7-32.8); MEAN CORPUSCULAR VOLUME 111.1 fL (75.5-95.3); PLATELET COUNT (AUTO) 150 K/uL (179-408)
[2021-11-10 07:24] LABS: BILIRUBIN,TOTAL 0.8 mg/dL (0.2-1.0); CREATININE 0.7 mg/dL (0.6-1.3); POTASSIUM 3.9 mmol/L (3.5-5.1); TOTAL PROTEIN, SERUM 5.8 g/dL (6.4-8.2)
[2021-11-10] MEDS: BUDESONIDE 0.5 MG/2 ML NEBU NEB SCH ×2 (07:31→18:35)
[2021-11-10] MEDS: GLUCERNA SHAKE VANILLA 237 ML CAN PO SCH ×2 (08:00→17:21)
[2021-11-10 08:49] VITALS: BP 143/79
[2021-11-10] MEDS: DILTIAZEM HCL CD 180 MG CAP.SR.24H PO SCH (09:01)
[2021-11-10] MEDS: LOSARTAN POTASSIUM 50 MG TABLET PO SCH ×2 (09:02→17:20)
[2021-11-10] MEDS: APIXABAN 5 MG TABLET PO SCH ×2 (09:02→20:12)
[2021-11-10] MEDS: METFORMIN HCL 500 MG TABLET PO SCH ×2 (09:03→17:17)
[2021-11-10] MEDS: CLOTRIMAZOLE/BETAMET DIPROP CREAM 15 GM TUBE TP SCH ×2 (09:04→20:48)
[2021-11-10] MEDS: CARISOPRODOL 350 MG TABLET PO PRN (10:20)
[2021-11-10 15:36] VITALS: BP 159/85
--- NOTE | 2021-11-10 19:03 | NUR ---
no events noted during shift, no acute distress noted, Mid line dressing changed, flushed, patent, no active bleeding noted
[2021-11-10 20:05] VITALS: BP 156/82
[2021-11-10] MEDS: LORAZEPAM 1 MG TABLET PO PRN (20:12)
[2021-11-10] MEDS: TRAZODONE 50 MG TABLET PO PRN (20:45)
[2021-11-11] MEDS: CEFEPIME HCL 2 G in IV DEXTROSE 5% 100 ML IV SCH ×2 (00:32→12:29)
[2021-11-11] MEDS: CARISOPRODOL 350 MG TABLET PO PRN ×2 (00:45→17:40)
[2021-11-11] MEDS: TRAMADOL HCL 50 MG TABLET PO PRN (01:51)
[2021-11-11 04:20] VITALS: BP 139/82
[2021-11-11 06:56] LABS: HEMATOCRIT 39.8 % (31.2-41.9); MEAN CORPUSCULAR HEMOGLOBIN 36.9 uug (24.7-32.8); MEAN CORPUSCULAR VOLUME 110.5 fL (75.5-95.3); PLATELET COUNT (AUTO) 147 K/uL (179-408)
[2021-11-11 07:14] LABS: ALANINE AMINOTRANSFERASE 38 U/L (14-59); ALKALINE PHOSPHATASE 98 U/L (50-136); ASPARTATE AMINOTRANSFERASE 22 U/L (15-37); BILIRUBIN,TOTAL 0.8 mg/dL (0.2-1.0); CARBON DIOXIDE 26 mmol/L (21-32); CHLORIDE 108 mmol/L (98-107); CREATININE 0.4 mg/dL (0.6-1.3); GLUCOSE 90 mg/dL (74-106); POTASSIUM 4.8 mmol/L (3.5-5.1); TOTAL PROTEIN, SERUM 5.3 g/dL (6.4-8.2); UREA NITROGEN, BLOOD 11 mg/dL (7-18)
[2021-11-11] MEDS: BUDESONIDE 0.5 MG/2 ML NEBU NEB SCH ×2 (07:30→19:39)
[2021-11-11] MEDS: DILTIAZEM HCL CD 180 MG CAP.SR.24H PO SCH (08:20)
[2021-11-11] MEDS: METFORMIN HCL 500 MG TABLET PO SCH ×2 (08:20→17:40)
[2021-11-11] MEDS: LOSARTAN POTASSIUM 50 MG TABLET PO SCH ×2 (08:20→20:37)
[2021-11-11] MEDS: GLUCERNA SHAKE VANILLA 237 ML CAN PO SCH ×2 (08:21→17:39)
[2021-11-11] MEDS: APIXABAN 5 MG TABLET PO SCH ×2 (08:21→20:34)
[2021-11-11] MEDS: CLOTRIMAZOLE/BETAMET DIPROP CREAM 15 GM TUBE TP SCH ×2 (08:25→20:40)
--- NOTE | 2021-11-11 11:14 | NUR ---
Pt refusing to participate with PT, only sat at edge of bed. Pt stated she feels weak and does not want to get up. Comfort measures provided, call light within reach.
[2021-11-11] MEDS: LORAZEPAM 1 MG TABLET PO PRN (17:43)
[2021-11-11 20:35] VITALS: BP 147/75
[2021-11-12] MEDS: CEFEPIME HCL 2 G in IV DEXTROSE 5% 100 ML IV SCH ×2 (00:01→13:15)
[2021-11-12] MEDS: TRAMADOL HCL 50 MG TABLET PO PRN ×2 (02:36→19:59)
[2021-11-12 04:32] VITALS: BP 153/76
--- NOTE | 2021-11-12 05:26 | NUR ---
Pt slept comfortably through the night. No acute changes. Cefepime ABX given. HIRA midline inact and saline flushed. Able to walk to bedside commode with minimal assistance. Compliant with medication and care. Safety measures maintained.
[2021-11-12 06:30] LABS: HEMATOCRIT 41.1 % (31.2-41.9); MEAN CORPUSCULAR HEMOGLOBIN 36.6 uug (24.7-32.8); MEAN CORPUSCULAR VOLUME 109.5 fL (75.5-95.3); PLATELET COUNT (AUTO) 167 K/uL (179-408)
[2021-11-12] MEDS: BUDESONIDE 0.5 MG/2 ML NEBU NEB SCH ×2 (07:35→18:10)
[2021-11-12 07:46] LABS: BILIRUBIN,TOTAL 0.7 mg/dL (0.2-1.0); CREATININE 0.8 mg/dL (0.6-1.3); POTASSIUM 3.7 mmol/L (3.5-5.1); TOTAL PROTEIN, SERUM 6.1 g/dL (6.4-8.2)
[2021-11-12 08:00] VITALS: BP 159/81
[2021-11-12] MEDS: METFORMIN HCL 500 MG TABLET PO SCH ×2 (08:28→17:13)
[2021-11-12] MEDS: LOSARTAN POTASSIUM 50 MG TABLET PO SCH ×2 (08:29→20:43)
[2021-11-12] MEDS: DILTIAZEM HCL CD 180 MG CAP.SR.24H PO SCH (08:29)
[2021-11-12] MEDS: APIXABAN 5 MG TABLET PO SCH ×2 (08:30→20:44)
[2021-11-12] MEDS: CLOTRIMAZOLE/BETAMET DIPROP CREAM 15 GM TUBE TP SCH ×2 (08:31→20:44)
[2021-11-12] MEDS: GLUCERNA SHAKE VANILLA 237 ML CAN PO SCH ×2 (08:32→17:14)
[2021-11-12] MEDS: LORAZEPAM 1 MG TABLET PO PRN (09:39)
[2021-11-12] MEDS: CARISOPRODOL 350 MG TABLET PO PRN ×2 (09:39→18:37)
--- NOTE | 2021-11-12 16:14 | NUR ---
patient is alert and oriented x4, verbalize needs known, vital sign stable denies any pain or discomfort at this time.mild line on right arm dressing D/C/I.assisted to use bed side commode keep skin dry and clean ,continue on IV antibiotic Tx.on room air no acute distress noted ,will continue close monitoring.
[2021-11-12 16:41] VITALS: BP 157/89
[2021-11-12 20:19] VITALS: BP 149/83
[2021-11-12] MEDS: CEFTRIAXONE 1 G in IV DEXTROSE 5% 50 ML IV SCH (21:26)
[2021-11-12] MEDS: TRAZODONE 50 MG TABLET PO PRN (22:29)
[2021-11-13 04:12] VITALS: BP 159/85
[2021-11-13] MEDS: LORAZEPAM 1 MG TABLET PO PRN ×2 (05:38→19:37)
[2021-11-13] MEDS: CARISOPRODOL 350 MG TABLET PO PRN (05:38)
[2021-11-13 06:48] LABS: HEMATOCRIT 42.4 % (31.2-41.9); MEAN CORPUSCULAR HEMOGLOBIN 36.6 uug (24.7-32.8); PLATELET COUNT (AUTO) 158 K/uL (179-408)
[2021-11-13 06:58] LABS: BILIRUBIN,TOTAL 0.7 mg/dL (0.2-1.0); CREATININE 0.6 mg/dL (0.6-1.3); POTASSIUM 3.3 mmol/L (3.5-5.1); TOTAL PROTEIN, SERUM 5.9 g/dL (6.4-8.2)
[2021-11-13] MEDS: BUDESONIDE 0.5 MG/2 ML NEBU NEB SCH ×2 (07:16→21:30)
[2021-11-13] MEDS ORDERED: POTASSIUM CHLORIDE 20 MEQ POWDER PACKET PO ONE (07:30)
[2021-11-13] MEDS ORDERED: POTASSIUM CHLORIDE 20 MEQ TAB.PRT.SR PO ONE (07:30)
[2021-11-13 08:00] VITALS: BP 161/79
--- NOTE | 2021-11-13 08:00 | NUR ---
oriented x 4, denies of pain, states feeling better although appetite is still poor, explained plan of care -verbalized understanding, seen by ID, safety measures in place, call light within reach
[2021-11-13] MEDS: METFORMIN HCL 500 MG TABLET PO SCH ×2 (08:07→17:36)
[2021-11-13] MEDS: GLUCERNA SHAKE VANILLA 237 ML CAN PO SCH (08:07)
[2021-11-13] MEDS ORDERED: APIXABAN 2.5 MG TABLET PO SCH ×2 (09:00)
[2021-11-13] MEDS ORDERED: AMLODIPINE 5 MG TABLET PO SCH (09:00)
[2021-11-13] MEDS: DILTIAZEM HCL CD 180 MG CAP.SR.24H PO SCH (09:32)
[2021-11-13] MEDS: APIXABAN 5 MG TABLET PO SCH ×2 (09:33→20:22)
[2021-11-13] MEDS: CLOTRIMAZOLE/BETAMET DIPROP CREAM 15 GM TUBE TP SCH ×2 (09:34→20:23)
[2021-11-13] MEDS: LOSARTAN POTASSIUM 50 MG TABLET PO SCH ×2 (09:34→20:18)
[2021-11-13] MEDS: AMLODIPINE 2.5 MG TABLET PO SCH ×2 (09:34→20:17)
[2021-11-13 15:59] VITALS: BP 145/84
[2021-11-13] MEDS: TRAMADOL HCL 50 MG TABLET PO PRN (17:43)
--- NOTE | 2021-11-13 18:03 | NUR ---
eating better for dinner, medicated for back pain, uses commode with stand by assist, all needs attended and met, call light within reach
[2021-11-13 20:17] VITALS: BP 130/83
[2021-11-13] MEDS: CEFTRIAXONE 1 G in IV DEXTROSE 5% 50 ML IV SCH (21:12)
[2021-11-13] MEDS: TRAZODONE 50 MG TABLET PO PRN (21:12)
[2021-11-14] MEDS: TRAMADOL HCL 50 MG TABLET PO PRN ×2 (03:03→19:36)
[2021-11-14 04:33] VITALS: BP 130/77
--- NOTE | 2021-11-14 05:16 | NUR ---
AAOx4 All needs attended. All due meds given as needed. Pain meds given as well. No ill effects noted. Will monitor patient. Voiding well. No acute distress noted.VSS.
[2021-11-14 06:51] LABS: MEAN CORPUSCULAR HEMOGLOBIN 36.3 uug (24.7-32.8); MEAN CORPUSCULAR VOLUME 109.8 fL (75.5-95.3); PLATELET COUNT (AUTO) 178 K/uL (179-408)
[2021-11-14 07:25] LABS: BILIRUBIN,TOTAL 0.6 mg/dL (0.2-1.0); CREATININE 0.6 mg/dL (0.6-1.3); POTASSIUM 3.7 mmol/L (3.5-5.1); TOTAL PROTEIN, SERUM 6.1 g/dL (6.4-8.2)
[2021-11-14] MEDS: BUDESONIDE 0.5 MG/2 ML NEBU NEB SCH ×2 (07:40→19:43)
[2021-11-14 08:00] VITALS: BP 140/75
[2021-11-14] MEDS: APIXABAN 5 MG TABLET PO SCH ×2 (09:04→21:25)
[2021-11-14] MEDS: LOSARTAN POTASSIUM 50 MG TABLET PO SCH ×2 (09:05→21:05)
[2021-11-14] MEDS: DILTIAZEM HCL CD 180 MG CAP.SR.24H PO SCH (09:05)
[2021-11-14] MEDS: METFORMIN HCL 500 MG TABLET PO SCH ×2 (09:05→17:34)
[2021-11-14] MEDS: AMLODIPINE 2.5 MG TABLET PO SCH ×2 (09:06→21:06)
[2021-11-14] MEDS: CLOTRIMAZOLE/BETAMET DIPROP CREAM 15 GM TUBE TP SCH ×2 (09:06→21:25)
--- NOTE | 2021-11-14 10:33 | NUR ---
INTERDISCIPLINARY TEAM CONFERENCE
[2021-11-14] MEDS: CARISOPRODOL 350 MG TABLET PO PRN (14:54)
[2021-11-14 15:43] VITALS: BP 108/57
--- NOTE | 2021-11-14 18:28 | NUR ---
no events noted during shift
--- NOTE | 2021-11-14 19:15 | NUR ---
Received patient on bed, awake, alert x4, no shortness of breath, no complaint of pain. Safety precautions provided. Call light placed within reach.
[2021-11-14 20:00] VITALS: BP 126/69
[2021-11-14] MEDS: TRAZODONE 50 MG TABLET PO PRN (21:05)
[2021-11-14] MEDS: CEFTRIAXONE 1 G in IV DEXTROSE 5% 50 ML IV SCH (21:05)
[2021-11-15] MEDS: LORAZEPAM 1 MG TABLET PO PRN ×2 (03:13→19:40)
[2021-11-15 04:00] VITALS: BP 141/62
--- NOTE | 2021-11-15 05:42 | NUR ---
Slept well, no significant event within the shift, patient in fair condition.
[2021-11-15 06:55] LABS: HEMATOCRIT 40.8 % (31.2-41.9); MEAN CORPUSCULAR HEMOGLOBIN 36.6 uug (24.7-32.8); MEAN CORPUSCULAR VOLUME 108.8 fL (75.5-95.3); PLATELET COUNT (AUTO) 204 K/uL (179-408)
[2021-11-15 07:04] LABS: CARBON DIOXIDE 30 mmol/L (21-32); CHLORIDE 105 mmol/L (98-107); CREATININE 0.7 mg/dL (0.6-1.3); GLUCOSE 114 mg/dL (74-106); PHOSPHOROUS 4.1 mg/dL (2.5-4.9); POTASSIUM 3.9 mmol/L (3.5-5.1); UREA NITROGEN, BLOOD 9 mg/dL (7-18)
[2021-11-15 07:06] LABS: MAGNESIUM 1.2 mg/dL (1.8-2.4)
[2021-11-15] MEDS: BUDESONIDE 0.5 MG/2 ML NEBU NEB SCH ×2 (07:24→19:53)
--- NOTE | 2021-11-15 07:42 | NUR ---
magnesium level reported to dr aleman, order received and noted
[2021-11-15 07:50] VITALS: BP 133/65
[2021-11-15] MEDS ORDERED: MAGNESIUM OXIDE 400 MG TABLET PO ONE (08:00)
[2021-11-15] MEDS: METFORMIN HCL 500 MG TABLET PO SCH ×2 (08:40→17:30)
[2021-11-15] MEDS: APIXABAN 5 MG TABLET PO SCH ×2 (08:40→20:39)
[2021-11-15] MEDS: DILTIAZEM HCL CD 180 MG CAP.SR.24H PO SCH (08:40)
[2021-11-15] MEDS: AMLODIPINE 2.5 MG TABLET PO SCH ×2 (08:41→20:38)
[2021-11-15] MEDS: LOSARTAN POTASSIUM 50 MG TABLET PO SCH ×2 (08:41→20:38)
[2021-11-15] MEDS: CLOTRIMAZOLE/BETAMET DIPROP CREAM 15 GM TUBE TP SCH ×2 (08:42→20:39)
[2021-11-15] MEDS: MAGNESIUM SULFATE/D5W 100 ML IV SCH ×4 (08:57→12:12)
[2021-11-15] MEDS: TRAMADOL HCL 50 MG TABLET PO PRN (10:24)
--- NOTE | 2021-11-15 11:30 | NUR ---
paged dr jesus for patient discharge atb plan
--- NOTE | 2021-11-15 14:22 | NUR ---
patient discharged to [facility] unit, stable condition, no sob, resp even nonlabored, skin warm and dry to touch, tx ongoing for left arm skin tear and right arm skin tear, belongings are accounted and signed, son was at bedside and agreed with plan Addendum: 11/15/21 at 1524 by SKY ADEN RN, RN wrong entry pls discard above documentation
[2021-11-15 20:03] VITALS: BP_SYST 114; BP_SYST 133; BP_DIAS 61; BP_DIAS 72
[2021-11-15] MEDS ORDERED: FERROUS SULFATE 325 MG TABEC PO SCH (21:00)
[2021-11-15] MEDS: CEFTRIAXONE 1 G in IV DEXTROSE 5% 50 ML IV SCH (21:41)
[2021-11-15] MEDS: TRAZODONE 50 MG TABLET PO PRN (21:51)
[2021-11-16] MEDS: TRAMADOL HCL 50 MG TABLET PO PRN (02:11)
[2021-11-16 04:03] VITALS: BP_SYST 106; BP_SYST 95; BP_DIAS 54; BP_DIAS 68
[2021-11-16] MEDS: BUDESONIDE 0.5 MG/2 ML NEBU NEB SCH (07:27)
[2021-11-16 07:53] VITALS: BP 140/67
[2021-11-16] MEDS: LOSARTAN POTASSIUM 50 MG TABLET PO SCH (09:29)
[2021-11-16] MEDS: APIXABAN 5 MG TABLET PO SCH (09:31)
[2021-11-16] MEDS: DILTIAZEM HCL CD 180 MG CAP.SR.24H PO SCH (09:31)
[2021-11-16] MEDS: LORAZEPAM 1 MG TABLET PO PRN (09:31)
[2021-11-16 09:37] VITALS: BP 140/67
[2021-11-16] MEDS: AMLODIPINE 2.5 MG TABLET PO SCH (09:37)
[2021-11-16] MEDS: CLOTRIMAZOLE/BETAMET DIPROP CREAM 15 GM TUBE TP SCH (09:37)
[2021-11-16] MEDS: METFORMIN HCL 500 MG TABLET PO SCH (09:37)
--- NOTE | 2021-11-16 11:45 | NUR ---
D/C TO HOME WITH FAMILY. D/C INSTRUCTIONS GIVEN TO PT VERBALIZED UNDERSTANDING.
== END 2021-11-16 11:30 | disposition home health service (06) | DRG 308 ==
PROVIDERS: ADMIT Physical Medicine & Rehabilitation Pain Medicine; ATTEND Physical Medicine & Rehabilitation Pain Medicine
DX: I48.19 Other persistent atrial fibrillation (principal); A41.51 Sepsis due to Escherichia coli [E. coli]; G92.8 Other toxic encephalopathy; I50.33 Acute on chronic diastolic (congestive) heart failure; R65.20 Severe sepsis without septic shock; J44.0 Chronic obstructive pulmonary disease with (acute) lower respiratory infection; J44.1 Chronic obstructive pulmonary disease with (acute) exacerbation; E66.2 Morbid (severe) obesity with alveolar hypoventilation; N39.0 Urinary tract infection, site not specified; D68.59 Other primary thrombophilia; I11.0 Hypertensive heart disease with heart failure; J20.9 Acute bronchitis, unspecified; G89.29 Other chronic pain; S10.93XD Contusion of unspecified part of neck, subsequent encounter; S00.83XD Contusion of other part of head, subsequent encounter; W06.XXXD Fall from bed, subsequent encounter; E53.8 Deficiency of other specified B group vitamins; E11.9 Type 2 diabetes mellitus without complications; Z68.35 Body mass index [BMI] 35.0-35.9, adult; M54.50 Low back pain, unspecified; B96.20 Unspecified Escherichia coli [E. coli] as the cause of diseases classified elsewhere; D72.821 Monocytosis (symptomatic); E78.5 Hyperlipidemia, unspecified; Z88.2 Allergy status to sulfonamides; Z79.01 Long term (current) use of anticoagulants; Z86.73 Personal history of transient ischemic attack (TIA), and cerebral infarction without residual deficits; Z72.0 Tobacco use; E83.42 Hypomagnesemia; E87.6 Hypokalemia; R19.7 Diarrhea, unspecified; B96.4 Proteus (mirabilis) (morganii) as the cause of diseases classified elsewhere; F41.9 Anxiety disorder, unspecified; Z88.0 Allergy status to penicillin; Z88.8 Allergy status to other drugs, medicaments and biological substances; R26.81 Unsteadiness on feet; R53.1 Weakness; R97.0 Elevated carcinoembryonic antigen [CEA]
CPT/HCPCS: 36415; 36600; 70030-TC; 70450; 70553; 71045; 82747; 82803; 83550; 83605; 83735; 84100; 84443; 85014; 85025; 86140; 87040; 87077; 87086; 94640; 97161; 97535-GO-CO; J0692; J0696; J3370; J3475; J3480; J3590; J7040; J7050; J7512; J8499; Q0162